=== PATIENT | male | born 1995 | race African-American/Black ===

== ENCOUNTER 2016-05-19 03:29 | Emergency (ER) | payer OTHER ==
[~2016-05-19] VITALS: Ht 175.3 cm; Wt 74.8 kg
[2016-05-19 03:48] LABS: ABSOLUTE NEUTROPHILS 8.8 thou/uL (1.4-8.2); BASOPHILS 0.3 % (0.0-2.0); EOSINOPHILS 0.6 % (0.0-3.0); HEMATOCRIT 47.1 % (42.0-52.0); HEMOGLOBIN 15.7 gm/dL (14.0-18.0); LYMPHOCYTES 12.5 % (24.0-44.0); MCH 28.2 pg (26.0-34.0); MCHC 33.4 g/dL (28.0-37.0); MCV 84.6 fL (80.0-100.0); MONOCYTES 4.9 % (1.0-8.0); PLATELET COUNT 250 thou/uL (150-400); POLYS 81.7 % (36.0-66.0); RBC 5.57 mil/uL (4.50-6.00); WBC 10.7 thou/uL (4.0-11.0)
[2016-05-19 03:52] LABS: MANUAL DIFF NO
[2016-05-19 04:02] LABS: ALBUMIN 4.6 g/dL (3.4-5.0); CALCIUM 9.8 mg/dL (8.5-10.1); CREATININE 1.1 mg/dL (0.6-1.3); POTASSIUM 3.7 mmol/L (3.5-5.1); TOTAL BILIRUBIN 1.5 mg/dL (<0.1-1.0); TOTAL PROTEIN 8.7 g/dL (6.4-8.2)
[2016-05-19] MEDS ORDERED: LOPERAMIDE 2 MG2 M1 PO (05:05)
[2016-05-19] MEDS ORDERED: ZOFRAN ODT4 MG PO (05:05)
[2016-05-19 05:35] VITALS: BP 122/65
== END 2016-05-19 05:36 | disposition home or self-care (01) ==
LOC: ER 03:29
PROVIDERS: Emergency Medicine
DX: K52.89 Other specified noninfective gastroenteritis and colitis (principal); F12.10 Cannabis abuse, uncomplicated